=== PATIENT | male | born 1955 | race Asian ===

== ENCOUNTER 2019-01-13 08:44 | Emergency (ER) | payer BC ==
--- OUTSIDE RECORDS SUMMARY | 2019-01-13 08:53 | XMS REPORT | Clinical Summary ---
:1955 Author Organization [facility] Address [address] [place] [id number] Care Team Providers Name Role Phone Tonia Hodges MD Primary Care Provider Allergies Active Allergy Reactions Severity Noted Date Comments Penicillins Rash Low 04/01/2018 Medications Medication Sig Dispensed Refills Start Date End Date Status metFORMIN (GLUCOPHAGE) Take by mouth 2 0 Active 500 mg tablet (two) times a day. Active Problems Problem Noted Date History of colon polyps 04/04/2018 Encounters Date Type Specialty Care Team Description 04/04/2018 Anesthesia Event Gastroenterology Ankita Richardson FNP 04/04/2018 Hospital Encounter Antonio Fuentes History of colon MD Isra polyps 04/04/2018 Surgery Antonio Fuentes COLONOSCOPY with MD Isra biopsy 04/01/2018 Pre-Admit Testing Pre-Admission Testing Antonio Conklin Preop testing Appointment MD Isra (Primary Dx) after 01/12/2018 Family History Medical History Relation Name Comments Cancer Father Relation Name Status Comments Father Social History Tobacco Use Types Packs/Day Years Used Date Former Smoker Cigarettes Smokeless Tobacco: Never Used Comments: SMOKE 40 YEARS, QUIT 1 YEAR AGO Alcohol Use Drinks/Week oz/Week Comments Yes SOCIAL Sex Assigned at Date Recorded Not on file Job Start Date Occupation Industry Not on file Not on file Not on file Travel History Travel Start Travel End No recent travel history available. Last Filed Vital Signs Vital Sign Reading Time Taken Blood Pressure 113/67 04/04/2018 12:00 PM CDT Pulse 59 04/04/2018 12:00 PM CDT Temperature 36 C (96.8 F) 04/04/2018 11:30 AM CDT Respiratory Rate 16 04/04/2018 12:00 PM CDT Oxygen Saturation 100% 04/04/2018 12:00 PM CDT Inhaled Oxygen Concentration - - Weight 79.8 kg (176 lb) 04/01/2018 10:59 AM CDT Height 162.6 cm (5' 4") 04/01/2018 10:59 AM CDT Body Mass Index 30.21 04/01/2018 10:59 AM CDT Plan of Treatment Health Maintenance Due Date Last Done Comments COLONOSCOPY SCREENING 2006 SHINGLES VACCINES (#1) 2006 INFLUENZA VACCINE 02/02/2019 Procedures Procedure Name Priority Date/Time Associated Comments Diagnosis POC GLUCOSE Routine 04/04/2018 10:46 Results for this AM CDT procedure are in the results section. COLONOSCOPY 04/04/2018 10:05 History of colon AM CDT polyps SURGICAL PATHOLOGY Routine 04/04/2018 8:10 Results for this REQUEST AM CDT procedure are in the results section. ECG PRE/POST OP Routine 04/01/2018 10:27 Preop testing Results for this AM CDT procedure are in the results section. after 01/12/2018 Results POC glucose (04/04/2018 10:46 AM CDT) Pathologist [facility] POC glucose 87 65 - 99 mg/dL [facility] DEPARTMENT OF Comment: PATHOLOGY AND Meter ID: [id number] GENOMIC MEDICINE Home Based Assistant: Fatuma Specimen Performing Organization Address [facility]/Zipcode Phone Number [facility] DEPARTMENT OF PATHOLOGY [id number] [place] [id number] AND GENOMIC MEDICINE Surgical pathology request (04/04/2018 8:10 AM CDT) [facility] DEPARTMENT OF PATHOLOGY AND GENOMIC MEDICINE Surgical pathology See link below [facility] DEPARTMENT OF report for PDF Lab PATHOLOGY AND Report GENOMIC MEDICINE Result status This is Final [facility] DEPARTMENT OF Report for PATHOLOGY AND [id number] GENOMIC MEDICINE Specimen Performing Organization Address City/[facility]/Zipcode Phone Number [facility] DEPARTMENT OF PATHOLOGY [address] [place] [address] AND GENOMIC MEDICINE ECG Pre/Post Op (04/01/2018 10:27 AM CDT) Ventricular rate 59 [facility] Atrial rate 59 [facility] MI interval 182 [facility] QRSD interval 90 [facility] QT interval 398 [facility] QTC interval 394 [facility] P axis 1 43 [facility] QRS axis 1 68 [facility] T wave axis 51 [facility] EKG impression Sinus [facility] bradycardia-Cannot rule out Anterior infarct , age undetermined-Abnormal ECG-No previous ECGs available-Electronicall y Signed By Fidelina Castellon MD ([id number]) on 04/04/2018 12:53:24 AM Specimen Performing Organization Address City/State/Zipcode Phone Number [facility] [address] [place] [address] after 01/12/2018 Advance Directives Patient has advance care planning documents on file. For more information, please contact:Gerber Ramirez[address] [place] [address]
[2019-01-13] MEDS ORDERED: LIDOCAINE 1% MPF 2 ML AMPULE ONE (09:10)
--- NOTE | 2019-01-13 09:10 | RAD REPORT ---
EXAM DESCRIPTION: RAD - Hand Right 3 View - 01/13/2019 9:03 am CLINICAL HISTORY: Pain;Deformity COMPARISON: No comparisons FINDINGS: Dislocation is seen the level of the PIP joint of the fourth finger. A fracture is not tahmina dent.
[2019-01-13] MEDS ORDERED: LIDOCAINE 2% MPF 5 ML VIAL ONE (09:19)
--- NOTE | 2019-01-13 09:22 | ER ---
Nurse's Notes [facility] Name: Jorge Ravi Age: 63 yrs Sex: Male : 1955 Arrival Date: 01/13/2019 Time: 08:45 Bed 6 Private MD: Diagnosis: Dislocation of proximal interphalangeal joint of right ring finger Presentation: 01/13 08:57 Presenting complaint: Patient states: Fell while out fishing, caught self on ph outstretched hand and dislocated R ring finger, obvious deformity noted, denies other injury. Transition of care: patient was not received from another setting of care. Onset of symptoms was January 13, 2019. Risk Assessment: Do you want to hurt yourself or someone else? Patient reports no desire to harm self or others. Initial Sepsis Screen: Does the patient meet any 2 criteria? No. Patient's initial sepsis screen is negative. Does the patient have a suspected source of infection? No. Patient's initial sepsis screen is negative. Care prior to arrival: Ice pack applied to injury. 08:57 Method Of Arrival: Ambulatory 08:57 Acuity: CAROL 4 Triage Assessment: 09:01 General: Appears in no apparent distress. Behavior is calm, cooperative. Pain: ph Complains of pain in dorsal aspect of middle phalanx of right ring finger and dorsal aspect of proximal phalanx of right ring finger. Neuro: Level of Consciousness is awake, alert, obeys commands, Oriented to person, place, time, situation. Cardiovascular: Capillary refill < 3 seconds in bilateral fingers Patient's skin is warm and dry. Respiratory: Airway is patent Respiratory effort is even, unlabored. Derm: Skin is healthy with good turgor, Skin is pink, warm \T\ dry. Musculoskeletal: Bony deformity noted of dorsal aspect of middle phalanx of right ring finger and dorsal aspect of proximal phalanx of right ring finger. Injury Description: Abrasion sustained to dorsal aspect of distal phalanx of right middle finger. Historical: - Allergies: 09:08 PENICILLINS; ph - Home Meds: 09:08 Metformin Oral [Active]; ph - PMHx: 09:08 Diabetes - NIDDM; ph - Immunization history:: Adult Immunizations unknown. - Family history:: not pertinent. - Social history:: Smoking status: Patient/guardian denies using tobacco. - Ebola Screening: : No symptoms or risks identified at this time. - Hospitalizations: : No recent hospitalization is reported. Screenin:01 Abuse screen: Denies threats or abuse. Denies injuries from another. Nutritional ph screening: No deficits noted. Tuberculosis screening: No symptoms or risk factors identified. Fall Risk Fall in past 12 months (25 points). No secondary diagnosis (0 pts). No IV (0 pts). Ambulatory Aid- None/Bed Rest/Nurse Assist (0 pts). Gait- Normal/Bed Rest/Wheelchair (0 pts) Mental Status- Oriented to own ability (0 pts). Total Jensen Fall Scale indicates Low Risk Score (25-44 pts). Fall prevention measures have been instituted. Side Rails Up X 2 Family Present and informed to notify staff if they need to leave bedside. Assessment: 09:35 General: See triage assessment. ph 09:36 Reassessment: Patient appears in no apparent distress at this time. Patient and/or ph family updated on plan of care and expected duration. Pain level reassessed. Pt d/.c home w/ family Patient denies pain at this time. Vital Signs: 09:00 BP 130 / 75; Pulse 64; Resp 18; Temp 97.6; Pulse Ox 97% on R/A; Weight 72.57 kg; ph ED Course: 08:45 Patient arrived in ED. as 08:50 Magdaleno Lee MD is Attending Physician. rn 08:53 Kade Frazier, DAVID is Primary Nurse. bp 09:00 Triage completed. ph 09:01 Arm band placed on Patient placed in an exam room, on a stretcher. ph 09:03 XRAY Hand RIGHT 3 View In Process Unspecified. EDMS 09:03 Patient has correct armband on for positive identification. Bed in low position. Call ph light in reach. Side rails up X 1. Pulse ox on. NIBP on. Door closed. Noise minimized. 09:05 Aluminum finger splint applied to dorsal aspect of middle phalanx of right ring finger. ph Administered Medications: 09:09 Drug: Lidocaine (1 %) 1 vials Volume: 5 ml; Route: Infiltration; ph 09:35 Follow up: Response: No adverse reaction; Pain is decreased ph Outcome: 09:21 Discharge ordered by . rn 09:49 Patient left the ED. ph Signatures: Dispatcher [employer] Shadia Restrepo Roman, MD MD rn Maine Kim RN RN ph Kade Frazier RN RN bp
--- NOTE | 2019-01-13 09:22 | EDPHYS ---
Physician Documentation [facility] Name: Jorge Ravi Age: 63 yrs Sex: Male : 1955 Arrival Date: 01/13/2019 Time: 08:45 Bed 6 Private MD: ED Physician Magdaleno Lee HPI: 01/13 08:59 This 63 yrs old Male presents to ER via Unassigned with complaints of Finger rn Injury. 08:59 Trauma demographics: Location of Injury: The injury occurred outdoors. Mechanism of rn injury: Fall:. Associated injuries: The patient sustained right hand. Onset: The symptoms/episode began/occurred just prior to arrival. The patient has not experienced similar symptoms in the past. Fall, landed on hand, + deformed right 4th digit, mild numbness to tip. Otherwise no other injuries. . Historical: - Allergies: 09:08 PENICILLINS; ph - Home Meds: 09:08 Metformin Oral [Active]; ph - PMHx: 09:08 Diabetes - NIDDM; ph - Immunization history:: Adult Immunizations unknown. - Family history:: not pertinent. - Social history:: Smoking status: Patient/guardian denies using tobacco. - Ebola Screening: : No symptoms or risks identified at this time. - Hospitalizations: : No recent hospitalization is reported. ROS: 08:59 Constitutional: Negative for fever, chills, and weight loss, MS/Extremity: + right 4th rn digit deformity and pain Exam: 08:59 Constitutional: This is a well developed, well nourished patient who is awake, alert, rn and in no acute distress. MS/ Extremity: Pulses equal, no cyanosis. Neurovascular intact. + lateral deformity of right 4th digit, painful ROM at 4th PIP, no open wounds, no tenderness of rest of hand/wrist/forearm/elbow/shoulder. Vital Signs: 09:00 BP 130 / 75; Pulse 64; Resp 18; Temp 97.6; Pulse Ox 97% on R/A; Weight 72.57 kg; ph Procedures: 09:16 Reduction: of the right 4th PIP, using traction, manipulation, Immobilized with finger rn splint, Patient tolerated well. Nerve block: (digital) of palmar aspect of proximal phalanx of right ring finger Medication: Lidocaine 1% without epinephrine Amount: 3 mls were injected, Effect: the patient's symptoms are improved, Set up for procedure. Performed by Magdaleno Lee MD Patient tolerated well. MDM: 08:50 Patient medically screened. rn 09:16 Differential diagnosis: extremity fracture, dislocation. Data reviewed: vital signs, rn nurses notes, radiologic studies, plain films, and as a result, I will discharge patient. Test interpretation: by ED physician or midlevel provider: plain radiologic studies, Xray right hand with 4th digit PIP dislocation, no fracture. Counseling: I had a detailed discussion with the patient and/or guardian regarding: the historical points, exam findings, and any diagnostic results supporting the discharge/admit diagnosis, radiology results, the need for outpatient follow up, to return to the emergency department if symptoms worsen or persist or if there are any questions or concerns that arise at home. Special discussion: I discussed with the patient/guardian in detail that at this point there is no indication for admission to the hospital. It is understood, however, that if the symptoms persist or worsen the patient needs to return immediately for re-evaluation. Further emergent ED testing is not indicated at this point in time. I discussed with the patient/guardian in detail the need to arrange with the PCP or specialist further outpatient testing, MRI. 01/13 08:54 Order name: XRAY Hand RIGHT 3 View; Complete Time: 09:14 rn Administered Medications: 09:09 Drug: Lidocaine (1 %) 1 vials Volume: 5 ml; Route: Infiltration; ph 09:35 Follow up: Response: No adverse reaction; Pain is decreased ph Disposition: 01/13/19 09:21 Discharged to Home. Impression: Dislocation of proximal interphalangeal joint of right ring finger. - Condition is Stable. - Discharge Instructions: Finger or Thumb Dislocation. - Prescriptions for Tylenol- Codeine #3 300-30 mg Oral Tablet - take 1 tablet by ORAL route every 6 hours As needed; 20 tablet. - Medication Reconciliation Form, Thank You Letter, Antibiotic Education, Prescription Opioid Use form. - Follow up: Private Physician; When: As needed; Reason: Recheck today's complaints, Re-evaluation by your physician. - Problem is new. - Symptoms have improved. Signatures: Dispatcher [employer] EDMS Magdaleno Lee MD MD rn Hall, Patricia, RN RN ph Corrections: (The following items were deleted from the chart) 09:49 09:21 01/13/2019 09:21 Discharged to Home. Impression: Dislocation of proximal ph interphalangeal joint of right ring finger. Condition is Stable. Forms are Medication Reconciliation Form, Thank You Letter, Antibiotic Education, Prescription Opioid Use. Follow up: Private Physician; When: As needed; Reason: Recheck today's complaints, Re-evaluation by your physician. Problem is new. Symptoms have improved. rn
== END 2019-01-13 09:49 | disposition home or self-care (01) ==
LOC: ER 08:44
PROC: 0RSWXZZ Reposition Right Finger Phalangeal Joint, External Approach (ICD-10-PCS; principal; 2019-01-13)
DX: S63.284A Dislocation of proximal interphalangeal joint of right ring finger, initial encounter (principal); E11.9 Type 2 diabetes mellitus without complications; W01.0XXA Fall on same level from slipping, tripping and stumbling without subsequent striking against object, initial encounter; Y93.89 Activity, other specified; Y92.89 Other specified places as the place of occurrence of the external cause; Z88.0 Allergy status to penicillin
CPT/HCPCS: 64450; 99284; J2001